=== PATIENT | male | born 1970 | race Caucasian/White ===

== ENCOUNTER → 2017-08-02 | Emergency (ER) | payer OTHER ==
[~2017-08-02] VITALS: Ht 180.3 cm; Wt 81.6 kg
[~2017-08-02] MED LIST: HUMULIN 70100 UNIT/2; LEVAQUIN750 MG PO; METFORMIN HCL500 MG; PNEU16DI2
== END | disposition home or self-care (01) ==
LOC: ER 22:40
DX: L03.115 Cellulitis of right lower limb (principal)